=== PATIENT | female | born 1975 | race Caucasian/White ===

== ENCOUNTER 2017-06-20 17:13 | Emergency (ER) | payer MEDICAID ==
[~2017-06-20] VITALS: Ht 162.6 cm; Wt 85.0 kg
[2017-06-20 17:15] VITALS: Ht 162.6 cm; Wt 85.0 kg
--- NOTE | 2017-06-20 18:03 | ERD ---
ER Documentation Chief Complaint Chief Complaint headache x 3 weeks HPI headache today described as explosion in her head, pain is 6/10, pt report blurry vision , denies n/v/change in behavior ROS All systems reviewed and are negative except as per history of present illness. Allergies Allergies: Coded Allergies: No Known Drug Allergy (Unverified Allergy, Unknown, 10/09/06) Physical Exam Vitals Vital Signs Date Time Temp Pulse Resp B/P Pulse Ox O2 Delivery O2 Flow Rate FiO2 06/20/17 17:15 99.4 82 18 139/83 99 Physical Exam Const: Well-nourished, well-appearing, well-hydrated 41-year-old female no acute distress Head: Atraumatic Eyes: Normal Conjunctiva, PERRLA, EOMI, photosensitivity ENT: Normal External Ears, Nose and Mouth. Neck: Nontender over bony prominence of the cervical spine full range of motion..~ No meningismus. Resp: Clear to auscultation bilaterally respirations even and unlabored Cardio: Regular rate and rhythm, no murmurs Abd: Skin: Back: Ext: Neuro: M/S: Alert and oriented Face: EOMI, face and pharynx with normal sensation and function Motor: Normal strength throughout Sensation: Normal sensation throughout Speech: Normal Cerebel: Normal coordination Normal gait Normal finger to nose Psych: Normal Mood and Affect Result Diagram: 06/20/17 1845 06/20/17 184 Results 24 hrs Laboratory Tests Test 06/20/17 18:45 White Blood Count 8.010^3/ul Red Blood Count 4.5310^6/ul Hemoglobin 13.3g/dl Hematocrit 39.8% Mean Corpuscular Volume 87.9fl Mean Corpuscular Hemoglobin 29.4pg Mean Corpuscular Hemoglobin Concent 33.4g/dl Red Cell Distribution Width 13.1% Platelet Count 53563^3/UL Mean Platelet Volume 11.5fl Neutrophils % 58.5% Lymphocytes % 33.7% Monocytes % 5.0% Eosinophils % 1.9% Basophils % 0.5% Nucleated Red Blood Cells % 0.0/100WBC Neutrophils # 4.710^3/ul Lymphocytes # 2.710^3/ul Monocytes # 0.410^3/ul Eosinophils # 0.210^3/ul Basophils # 0.010^3/ul Nucleated Red Blood Cells # 0.010^3/ul Prothrombin Time 12.3Sec Prothrombin Time Ratio 1.0 INR International Normalized Ratio 0.91 Activated Partial Thromboplast Time 29.2Sec Sodium Level 142mmol/L Potassium Level 3.8mmol/L Chloride Level 106mmol/L Carbon Dioxide Level 24mmol/L Anion Gap 16 Blood Urea Nitrogen 9mg/dl Creatinine 0.62mg/dl Glucose Level 96mg/dl Calcium Level 9.5mg/dl Current Medications Medications (Trade) Dose Ordered Sig/Demar Route PRN Reason Start Time Stop Time Status Last Admin Dose Admin Sodium Chloride (NS) 1,000 ml @ 1,000 mls/hr Q1H STAT IV 06/20/17 18:07 06/20/17 19:06 DC 06/20/17 18:59 Metoclopramide HCl (Reglan) 10 mg ONCE STAT IV 06/20/17 18:07 06/20/17 18:10 DC 06/20/17 18:59 Ketorolac Tromethamine (Toradol) 15 mg ONCE STAT IV 06/20/17 18:07 06/20/17 18:10 DC 06/20/17 18:59 Diphenhydramine HCl (Benadryl) 25 mg ONCE STAT IV 06/20/17 18:07 06/20/17 18:10 DC 06/20/17 18:59 Procedures/MDM PROCEDURE: CT BRAIN WITHOUT CONTRAST. CLINICAL INDICATION: Headache TECHNIQUE: A CT of the brain was performed on a multidetector high-resolution CT scanner utilizing axial imaging from the skull base through the vertex without IV contrast. Multiplanar reformatted images were made. Images were reviewed on a PACS workstation. The CTDIvol is 45 mGy and the DLP is 720 mGycm. One or more of the following dose reduction techniques were used: - Automated exposure control. - Adjustment of the mA and/or kV according to patient size. - Use of iterative reconstruction technique. COMPARISON: None FINDINGS: The posterior fossa structures are unremarkable. The eros, midbrain, and medulla appear to be with normal limits. There is no evidence of acute intracranial hemorrhage, infarct, or extra-axial fluid collection. No gross mass effect or midline shift. Cerebral sulci, cisternal spaces, and ventricles are within normal limits. The visualized paranasal sinuses are clear. The mastoid air cells are well- aerated. The calvarium is unremarkable. IMPRESSION: 1. No evidence of acute intracranial hemorrhage, infarct, or extra-axial fluid collection. 2. Unremarkable CT brain. RPTAT: AARR Physician Yony Date Time Electronically viewed and signed by Physician Yony on 06/20/2017 19:16 This 41-year-old female presents to emergency department for headache described as an explosion in her head, pain 6 out of 10 on pain scale without any abnormal neurologic findings on exam. Emergency room course includes CAT scan and serology, CAT scan is interpreted by radiologist; no evidence of acute intracranial hemorrhage infarct or extra-axial fluid collection. Unremarkable CT of brain. Serology is negative for infection, hemorrhage, electrolyte dysfunction, renal insufficiency. Normal coagulation studies. She receives a liter of normal saline, 15 mg of IV Toradol, 10 mg of IV Reglan, 25 mg of IV Benadryl while in emergency department reassessed after 60 minutes with improvement in headache symptoms. Patient will be discharged home with ibuprofen 800 mg 1 tab p.o. 3 times daily as needed headache follow-up with primary care physician for headache evaluation, keep headache terminal, return to emergency department for vision change, change in behavior, or headache not improving to treatment. Patient is stable with no new complaints during ER course, clinically there is no current evidence to suggest meningitis, sepsis, intracranial bleed, subarachnoid bleed, subdural hematoma, TIA, CVA. Or any other emergent condition appearing to require further evaluation or hospitalization. I feel the patient is stable for discharge at this time. I have discussed results, examination findings, the treatment plan with the patient and family present prior to discharge. Indications for emergent reevaluation, side effects of medication were also discussed. All questions were answered. Patient verbalizes understanding and agrees with plan of care. Departure Diagnosis: Primary Impression: Headache Headache type: unspecified Headache chronicity pattern: episodic headache Intractability: not intractable Qualified Code: R51 - Nonintractable episodic headache, unspecified headache type Condition: Good Patient Instructions: Self-Care for Headaches Additional Instructions: Thank you for for coming to [facility] for your care today. Please ask your nurse or provider if you have questions about your care today and do not leave until all your questions have been answered. Please use any medications given as directed and follow-up with your doctor (or the doctor you were referred to) in the next 2-3 days. If you do not have a primary care doctor you may follow up at the [facility] (listed below). You may also use motrin and tylenol as needed for fever and/or pain unless instructed otherwise by your provider or nurse. Indications for more urgent follow-up have been discussed, but you may return to the Emergency Department at ANY time for any worrisome or worsening symptoms. If you have abdominal pain, please know that no test or exam you received is perfect and you should follow up within 8 hours for continued pain. If you had any imaging studies today, such as an X-Ray or CT Scan, these studies will be reviewed later by a radiologist. You will be called if there are important findings that were not identified today, so make sure the contact information you provided at registration is correct. If you received any narcotic pain control medicine today, such as Vicodin, Morphine or Dilaudid, your coordination and judgment may be affected for a number of hours. Please do not drive or operate heavy machinery, and you may want someone to assist you at home. If you were given a prescription for narcotic medication, be aware that it is very addictive- use sparingly and only if necessary. YUSRA MONGE Jun 20, 2017 18:03
[2017-06-20] MEDS ORDERED: SOD CHLORIDE 0.9% 1,000 ML IV STA (18:07)
[2017-06-20] MEDS ORDERED: DIPHENHYDRAMINE 50 MG INJ IV STA (18:07)
[2017-06-20] MEDS ORDERED: KETOROLAC 30 MG INJ IV STA (18:07)
[2017-06-20] MEDS ORDERED: METOCLOPRAMIDE 10 MG INJ IV STA (18:07)
--- NOTE | 2017-06-20 19:16 | RADRPT ---
PROCEDURE: CT BRAIN WITHOUT CONTRAST. CLINICAL INDICATION: Headache TECHNIQUE: A CT of the brain was performed on a multidetector high-resolution CT scanner utilizing axial imaging from the skull base through the vertex without IV contrast. Multiplanar reformatted images were made. Images were reviewed on a PACS workstation. The CTDIvol is 45 mGy and the DLP is 720 mGycm. One or more of the following dose reduction techniques were used: - Automated exposure control. - Adjustment of the mA and/or kV according to patient size. - Use of iterative reconstruction technique. COMPARISON: None FINDINGS: The posterior fossa structures are unremarkable. The eros, midbrain, and medulla appear to be with n ormal limits. There is no evidence of acute intracranial hemorrhage, infarct, or extra-axial fluid collection. No gross mass effect or midline shift. Cerebral sulci, cisternal spaces, and ventricles are within norm al limits. The visualized paranasal sinuses are clear. The mastoid air cells are well-aerated. The calvarium is unremarkable. IMPRESSION: 1. No evidence of acute intracranial hemorrhage, infarct, or extra-axial fluid collection. 2. Unremarkable CT brain. RPTAT: AARR Physician Yony Date Time Electronically viewed and signed by Physician Yony on 06/20/2017 19:16 [place]/
[2017-06-20 19:27] LABS: BASOPHILS % 0.5 % (0.0-2.0); EOSINOPHILS # 0.2 10^3/ul (0.0-0.5); EOSINOPHILS % 1.9 % (0.0-7.0); HEMATOCRIT 39.8 % (37.0-47.0); HEMOGLOBIN 13.3 g/dl (12.0-16.0); LYMPHOCYTES # 2.7 10^3/ul (0.8-2.9); LYMPHOCYTES % 33.7 % (15.0-51.0); MEAN CORPUSCULAR HEMOGLOBIN 29.4 pg (29.0-33.0); MEAN CORPUSCULAR HGB CONC 33.4 g/dl (32.0-37.0); MEAN CORPUSCULAR VOLUME 87.9 fl (82.0-101.0); MEAN PLATELET VOLUME 11.5 fl (7.4-10.4); MONOCYTE # 0.4 10^3/ul (0.3-0.9); NEUTROPHIL # 4.7 10^3/ul (1.6-7.5); NEUTROPHILS % 58.5 % (39.0-77.0); PLATELET COUNT 227 10^3/UL (140-415); RED BLOOD COUNT 4.53 10^6/ul (4.20-5.40); RED CELL DISTRIBUTION WIDTH 13.1 % (11.5-14.5)
[2017-06-20 19:43] LABS: INR 0.91; PROTIME 12.3 Sec (12.2-14.2)
[2017-06-20 19:44] LABS: PARTIAL THROMBOPLASTIN TIME 29.2 Sec (25.0-35.0)
[2017-06-20 19:46] LABS: CALCIUM 9.5 mg/dl (8.4-10.2); CREATININE 0.62 mg/dl (0.44-1.00); POTASSIUM 3.8 mmol/L (3.5-5.1)
[2017-06-20] MEDS ORDERED: IBUP800T25 PO (20:18)
== END 2017-06-20 20:31 | disposition home or self-care (01) ==
LOC: FTE 17:13
DX: R51 Headache (principal); R07.9 Chest pain, unspecified
CPT/HCPCS: 36415; 70450; 80048; 85025; 85610; 85730; 96374; 96375; J1200; J1885; J2765; J7030; Z7502